=== PATIENT | female | born 1980 | race Caucasian/White ===

== ENCOUNTER 2017-07-11 06:18 | Day surgery (SDC) | payer BC ==
[2017-07-10 09:25] VITALS: BMI 24.3
[2017-07-11] MEDS ORDERED: ePHEDrine SULFATE 50 MG/1 ML AMPULE ONE (07:32)
[2017-07-11] MEDS ORDERED: ROCURONIUM BROMIDE 50 MG/5 ML VIAL ONE (07:33)
[2017-07-11] MEDS ORDERED: SUCCINYLCHOLINE CHLORIDE 200 MG/10 ML VIAL ONE (07:33)
[2017-07-11] MEDS ORDERED: PROPOFOL 20 ML ONE ×6 (07:33)
[2017-07-11] MEDS ORDERED: MIDAZOLAM HCL 2 MG/2 ML SINGLE DOSE VIAL ONE (07:34)
[2017-07-11] MEDS ORDERED: ceFAZolin SODIUM 1 GM VIAL ONE (07:52)
[2017-07-11] MEDS ORDERED: ceFAZolin SODIUM 1 GM VIAL IVPB ONE (07:53)
[2017-07-11] MEDS ORDERED: fentaNYL CITRATE 250 MCG/5 ML VIAL ONE (08:18)
[2017-07-11] MEDS ORDERED: NEOSTIGMINE METHYLSULFATE 0.5 MG/ML - 10 ML MDV ONE (08:52)
[2017-07-11] MEDS ORDERED: BACITRACIN 15 GM TUBE TOPICAL OINTMENT ONE (08:53)
[2017-07-11] MEDS ORDERED: BACITRACIN 15 GM TUBE TOPICAL OINTMENT TP ONE (08:56)
[2017-07-11] MEDS ORDERED: oxyCODONE HCL 5 MG TABLET PO PRN (09:04)
[2017-07-11] MEDS ORDERED: ONDANSETRON 4 MG/2 ML VIAL IVPUSH PRN (09:04)
[2017-07-11] MEDS ORDERED: LACTATED RINGERS SOLUTION 1,000 ML IV SCH (09:15)
--- NOTE | 2017-07-11 09:19 | OP ---
<Van Franklin - Last Filed: 07/11/17 09:15> Operative Note - Note: Operative Date: 07/11/17 Pre-Operative Diagnosis: Right neck mass Operation: Excision of suspected right branchial cyst Surgeon: Jaime Mcghee Report Writer: Van Franklin Anesthesia: General Estimated Blood Loss (mls): 2 Drains & Tubes with Location: Right neck drain Fluid Volume Replaced (mls): 600 Operative Report Dictated: Yes <Jaime Mcghee - Last Filed: 07/11/17 09:31> Operative Note - Note: Estimated Blood Loss (mls): 5
--- NOTE | 2017-07-11 09:20 | SURG ---
Surgery Sour Bleaching Pleater Note Sour Bleaching Pleater: Van Franklin PA-C Date of Service: 07/11/17 Diagnosis: Right neck mass Procedure: Excision of suspected Right branchial cyst I was present for the entirety of the operative procedure. For further detail, please refer to operative report.
--- NOTE | 2017-07-11 09:56 | OP ---
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 PROCEDURE: Excision of right neck mass. SURGEON: Jaime Powers MD CASE FINISHER: Van Franklin ANESTHESIA: General endotracheal. INDICATIONS: The patient is a 36-year-old woman with a history of a right neck fistula, which has undergone 2 previous resections, the last of which was about 3 months ago, and the diagnosis was consistent with a branchial cleft fistula, who then had a new onset of swelling in the area adjacent to the fistula excision. On physical examination, there is a 2-cm firm cystic swelling in the right lateral low neck. 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 The nature and purpose of the proposed procedure as well as the risks, benefits, alternatives, and possible complications were discussed in detail with the patient, who appears to understand and wishes to proceed with surgery. All questions were answered, and an informed consent was given by the patient. PROCEDURE DESCRIPTION FOLLOWS: With the patient under general endotracheal anesthesia in the supine position, on a shoulder roll with her back slightly raised and her head turned to the left side, she was prepped and draped in the usual sterile fashion. An oblique incision was made in the relaxed skin tension lines overlying the mass, taking care to incorporate the previous scar. The incision was deepened through the platysma and, in the subplatysmal plane, the cystic mass was encountered and dissected free of its surrounding attachments with no evidence of any superior or inferior tracts leading into or away from the mass. Once it was free of its surrounding attachments, it was removed and sent for pathologic evaluation. Hemostasis was achieved with Bovie electrocautery. The wound was closed in 2 layers, platysma and skin, with 4-0 chromic and 4-0 Prolene. A [place] drain was brought out laterally, and then a pressure dressing was placed on the neck. When the patient awakened, she was extubated and discharged to the recovery room in satisfactory condition. Estimated blood loss was 5 mL. There were no complications. JAIME POWERS M.D. [id number] MTDD
[2017-07-11] MEDS ORDERED: ONDANSETRON 4 MG/2 ML VIAL ONE (13:14)
[2017-07-11 13:39] VITALS: TEMP 98.5
[2017-07-11 14:21] VITALS: BP 110/67; PULSE 63
--- NOTE | 2017-07-13 12:56 | PATH ---
Surgical Pathology Report Patient Name: ARNALDO GARCIA [facility]. Rec. #: [id number] /Age/Gender: 1980 (Age: 36) / F Account: [id number] Location: [facility] SURGICAL Taken: 07/11/2017 Received: 07/11/2017 Reported: 07/13/2017 Physicians: Jaime Mcghee Specimen(s) Received MASS OF RIGHT NECK Clinical History Right neck mass Final Diagnosis RIGHT NECK MASS, EXCISION: SEGMENT OF SKIN AND A CYST LINED BY CILIATED COLUMNAR /CUBOID EPITHELIUM WITH SCANTY LYMPHOCYTIC INFILTRATE, CONSISTENT WITH BRANCHIAL CLEFT CYST. Electronically Signed Sterling Somers M.D. Gross Description Received in formalin labeled "right neck mass," is a 2.8 x 1.4 x 1.1 cm estrada-pink soft tissue mass, consistent with an intact cystic structure. The specimen is partially surfaced by a 2.0 x 0.2 cm estrada, elliptical, unremarkable portion of skin. Sectioning of the cyst displays clear mucinous material within the lumen. Cloth Layer sections are submitted in one cassette. /07/11/2017 [facility]07/11/2017
== END 2017-07-11 15:00 | disposition home or self-care (01) ==
LOC: JASU-SURG 06:18
PROVIDERS: ATTEND Otolaryngology
PROC: 0WB60ZZ Excision of Neck, Open Approach (ICD-10-PCS; principal; 2017-07-11 07:30)
DX: Q18.0 Sinus, fistula and cyst of branchial cleft (principal)
CPT/HCPCS: 84703; 88307-TC; 94760